=== PATIENT | female | born 1985 | race Caucasian/White ===

== ENCOUNTER 2020-05-02 10:11 | Emergency (ER) | payer SELFPAY ==
[2020-05-02 10:21] VITALS: BMI 23.1
[2020-05-02 10:24] VITALS: BP 121/79; PULSE 76; RESP 16; TEMP 36.9; O2SAT 98
--- NOTE | 2020-05-02 10:27 | XR_ITS ---
WS: [id number] Right foot, 05/02/2020 Clinical Data: INJURY AND SWELLING TO RIGHT FOOT Comparison: None. Findings: No fractures or dislocations are seen. No bone destruction or erosion is noted. The joint spaces and soft tissues are normal. XR/XR foot RT min 3V* [id number] Impression: Negative right foot.
--- NOTE | 2020-05-02 10:55 | ED_ITS ---
HPI - Extremity Problem General: Chief complaint: Extremity Injury, Lower Stated complaint: r foot injury Time Seen by Provider: 05/02/20 10:40 History of Present Illness: HPI Narrative: 34-year-old female patient presents to the emergency department with complaints of right foot pain. She reports last night at approximately 6:30 PM, the [place] on the tractor were placed on her foot, her foot was smashed between the [place] and the ground. She continues to c omplain of right foot pain and swelling. She has not had anything for pain. MD Complaint: extremity pain (Right foot) and extremity swelling (Right foot) Pain Consistency: constant Location: lower extremity (Right foot) Severity scale (1-10): 7 Quality: aching and crushing Relieving factors: immobilization Associated symptoms: Reports no associated symptoms; Deny chest pain or fever(s) Review of Systems General: Reports: 10 or more systems reviewed and unremarkable except in HPI and below Const: Denies: fever(s), chills or diaphoresis Card: Denies: chest pain, palpitations or irregular heart rhythm Resp: Denies: dyspnea, productive cough, non-productive cough or wheezing Musc: Reports: extremity pain (Right foot), extremity swelling (Right foot) and limited range of motion (Right foot); Denies: back pain Neuro: Denies: headache(s), weakness in extremities or behavioral changes [facility] ED Female Reproductive History: Date of last menstrual period: 04/21/20 Physical Exam Const: COMMON NORMALS: no acute distress, patient oriented x3, healthy appeari ng and alert GENERAL APPEARANCE: cooperative, comfortable and well hydrated Chest: COMMONS NORMALS: normal inspection of the chest Resp: COMMON NORMALS: normal respiratory effort and clear to auscultation bilaterally AUSCULTATION: clear to auscultation bilaterally Cardio: COMMON NORMALS: regular rhythm RHYTHM: regular rhythm Back/Pelvis: COMMON NORMALS: thoracic and lumbar spine normal to inspection Extremity: COMMON NORMALS: normal to inspection and capillary refill normal RIGHT LOWER EXTREMITY: Yes foot & digits Right foot and digits: Yes inspection (Edema and ecchymosis noted to the distal lateral foot, full dorsiflexion of the right ankle noted, dorsiflexion of the toes with extension noted, tenderness over the distal lateral foot, plantar surface normal) and Yes neurovascular exam EXTREMITY IMAGE (FRONT): 1. Ecchymosis with edema localized to the dorsal foot, distal lateral ecchymosis present with edema Neuro: COMMON NORMALS: patient oriented x3 and no focal motor deficits SENSORIUM/ORIENTATION: Yes alert Skin: COMMON NORMALS: no rashes or lesions noted and turgor normal GENERAL SKIN EXAM: no rashes or lesions noted and turgor normal Course Vital Signs: Vital signs: Vital Signs Temperature 98.4 F 05/02/20 10:24 Pulse Rate 76 05/02/20 10:24 Respiratory Rate 16 05/02/20 10:24 Blood Pressure 121/79 05/02/20 10:24 Pulse Oximetry 98 05/02/20 10:24 Discharge Plan Discharge Patient Disposition: Home, Self-Care Condition: Stable Prescriptions: New ibuprofen 800 mg tablet 800 mg PO TID MDD 3 PRN (Reason: pain) Qty: 20 RF: 0 Discharge Orders: Discharge Order (Routine); Ordered 05/02/20 Ordered By: Shobha Guerrero Referrals: Chava Enamorado MD [Primary Care Provider] - Discharge Diet: Usual diet Discharge Activity: Limit activity as instructed Patient Instructions: Crush Injury Activity Restrictions/Additional Instructions: Keep the right lower extremity elevated, elevation will need to be above your heart to reduce swelling, increased swelling will cause increased pain, keep the extremity elevated as much as possible. May apply cool compresses to the area several times daily as needed for pain, never apply ice directly to the skin. May take ibuprofen, prescription has been provided to you, do not take any further medication such as Aleve, naproxen, or Advil [id number] as this will cause duplication of therapy which can hurt your kidneys. You may take [id number] Tylenol, acetaminophen, as directed on the back of the bottle. If you develop worsening pain, swelling of the right lower extremity, or right calf, you will need to return to the emergency department for further evaluation. Follow-up with your primary care provider in 5 days if not improved. Use crutches as needed for pain, avoid pressure on the right lower extremity until better. Stand Alone Forms: Work/School Release Discharge Date/Time: 05/02/20 11:29 Coding Level of Care Code ED [employer] [place] for Jtg Fwd Exam Comprehensive
== END 2020-05-02 11:29 | disposition home or self-care (01) ==
PROVIDERS: Emergency Provider Nurse Practitioner Family; Family Provider Family Medicine; PCP Family Medicine
DX: M79.671 Pain in right foot (principal)
CPT/HCPCS: 12345; 73630; 99281; 99283; E0114

== ENCOUNTER 2021-03-03 09:02 | Outpatient (CLI) | payer OTHER, SELFPAY ==
--- NOTE | 2021-03-03 09:08 | US_ITS ---
WS: [id number] ULTRASOUND PELVIS TECHNIQUE: Transabdominal and transvaginal. ULTRASOUND PELVIS TECHNIQUE: Transabdominal. CLINICAL INFORMATION: MENORRHAGIA : No. COMPARISON: None. FINDINGS: Uterus Orientation: Anteverted. Size: 8.1 cm x 4.3 cm x 3.3 cm. Masses: None. Cervix: 3.0 cm. Endometrium: Normal. Endometrium thickness: 0.5 cm. Adnexa: Simple right ovarian cyst measuring 1.6 x 1.6 x 1.7 cm. Left ovarian follicle measuring 8 mm. Right ovary size: 3.3 cm x 3.1 cm x 2.0 cm. Right ovary volume: 10.6 ccm3. Left ovary size: 2.8 cm x 2.7 cm x 1.8 cm. Left ovary volume: 7.2 ccm3 Free fluid: None. Other findings: None. US/US pelvic with transvaginal IMPRESSION: 1. Normal uterus and endometrium. Endometrium measures 5.3 mm. 2. Normal cervix measuring 3.0 cm. 3. Simple bilateral ovarian cysts largest in the right measuring
== END 2021-03-03 09:03 | disposition home or self-care (01) ==
LOC: RAD 09:04
PROVIDERS: PCP Family Medicine; Visit Provider Family Medicine
DX: N92.0 Excessive and frequent menstruation with regular cycle (principal); N83.202 Unspecified ovarian cyst, left side; N83.201 Unspecified ovarian cyst, right side
CPT/HCPCS: 76830; 76856

== ENCOUNTER → 2023-01-27 12:03 | Outpatient (BNVA) | payer OTHER, SELFPAY | PROVIDERS: PCP Family Medicine; Visit Provider Clinical Nurse Specialist Adult Health | DX: R10.9 Unspecified abdominal pain (principal) | CPT/HCPCS: 81000; 87086 ==